=== PATIENT | male | born 1930 | race Caucasian/White ===

== ENCOUNTER 2019-03-19 13:09 | Emergency (ER) | payer MEDICARE ==
--- NOTE | 2019-03-19 14:13 | ED ---
Upper Extremity Pain - HPI Summary HPI Summary: 88-year-old male presents with swelling to the right ring finger for the past couple days. He denies any known injury. He states he has history of gout and that it feels similar. he noticed redness to the DIP. No fevers. has he has full range of motion finger. Has history of high blood pressure. No renal issues. He hasn't tried anything for symptoms. - History of Current Complaint Chief Complaint: UCUpperExtremity Stated Complaint: SWOLLEN FINGER Time Seen by Provider: 03/19/19 14:00 - Allergies/Home Medications Allergies/Adverse Reactions: Allergies Allergy/AdvReac Type Severity Reaction Status Date / Time No Known Allergies Allergy Verified 03/19/19 13:40 Home Medications: Home Medications Atenolol 25 mg PO BID 03/19/19 [History Confirmed 03/19/19] Atenolol TAB* [Tenormin TAB* 25 MG] 25 mg PO BID 03/19/19 [History Confirmed ] Levothyroxine TAB* [Synthroid TAB*] 150 mcg PO SEE INSTRUCTIONS 03/19/19 [ History Confirmed 03/19/19] Omeprazole 20 mg PO DAILY WITH MEAL 03/19/19 [History Confirmed 03/19/19] Potassium Chlor TAB* [Klor Con ER TAB*] 20 meq PO DAILY 03/19/19 [History Confirmed 03/19/19] levETIRAcetam [Levetiracetam] 500 mg PO DAILY WITH MEAL 03/19/19 [History Confirmed 03/19/19] niCARdipine CAP* [Cardene CAP*] 30 mg PO TID 03/19/19 [History Confirmed ] PMH/Surg Hx/FS Hx/Imm Hx Endocrine/Hematology History: Denies: Hx Anticoagulant Therapy Cardiovascular History: Reports: Hx Hypertension Infectious Disease History: No Infectious Disease History: Denies: Traveled Outside the [place] in Last 30 Days - Family History Known Family History: Positive: Non-Contributory - Social History Alcohol Use: Daily Substance Use Type: Reports: None Smoking Status (MU): Former Smoker Review of Systems Negative: Fever Negative: Chest Pain Negative: Shortness Of Breath Positive: Edema - right ring finger Positive: Rash All Other Systems Reviewed And Are Negative: Yes Physical Exam Triage Information Reviewed: Yes Vital Signs On Initial Exam: Initial Vitals Temp Pulse Resp BP Pulse Ox 98.8 F 53 16 173/99 98 03/19/19 13:37 03/19/19 13:37 03/19/19 13:37 03/19/19 13:37 03/19/19 13:37 Vital Signs Reviewed: Yes Appearance: Positive: Well-Appearing Skin: Positive: Warm, Dry, Other - mild redness to medial side of right ring finger, no flutance noted, nontender of tendon sheath and no erythema over tendon sheath Head/Face: Positive: Normal Head/Face Inspection Eyes: Positive: Normal, Conjunctiva Clear ENT: Positive: Pharynx normal Respiratory/Lung Sounds: Positive: Clear to Auscultation, Breath Sounds Present Cardiovascular: Positive: Normal, RRR Musculoskeletal: Positive: Strength/ROM Intact - right ring finger, Edema Right - ring finger, Other - capillary refill<2secs Neurological: Positive: Normal Psychiatric: Positive: Normal Diagnostics - Vital Signs Vital Signs Temp Pulse Resp BP Pulse Ox 03/19/19 13:37 98.8 F 53 16 173/99 98 - Laboratory Lab Statement: Any lab studies that have been ordered have been reviewed, and results considered in the medical decision making process. Course/Dx - Course Course Of Treatment: 88-year-old male presents with swelling to the right ring finger for the past couple days. He denies any known injury. He states he has history of gout and that it feels similar. he noticed redness to the DIP. No fevers. has he has full range of motion finger. Has history of high blood pressure. No renal issues. He hasn't tried anything for symptoms. on exam has mild erythema to DIP and distal pharynx f right ring finger. Full range of motion. mo Signs of flexor tenosynovitis. Looks like potential early paronychia but nothing can be drained at moment. We'll place on Keflex. We'll also give indomethacin in case is gout. Patient told to follow up primary about the swelling and about blood pressure as is elevated at this time. told if area of redness spreads and cannot move finger to return to the ER. Patient understands agrees with plan. - Diagnoses Differential Diagnosis/HQI/PQRI: Positive: Septic Arthritis, Other - paronychia , gout Provider Diagnoses: Swelling of finger, right Discharge - Sign-Out/Discharge Documenting (check all that apply): Patient Departure All imaging exams completed and their final reports reviewed: No Studies - Discharge Plan Condition: Good Disposition: HOME Prescriptions: Cephalexin CAP* [Keflex CAP*] 500 mg PO BID #20 cap Indomethacin CAP* [Indocin CAP*] 50 mg PO TID PRN #21 cap PRN Reason: Pain Referrals: No Primary Care Phys,NOPCP [Primary Care Provider] - Additional Instructions: take indomethacin three times a day Take keflex twice a day for 10 days warm soaks of the area Follow up with primary within 5 days Return to ED if develop any new or worsening symptoms - Billing Disposition and Condition Condition: GOOD Disposition: Home
== END 2019-03-19 14:25 | disposition home or self-care (01) ==
LOC: UCEAST 13:09
DX: M79.89 Other specified soft tissue disorders (principal); R21 Rash and other nonspecific skin eruption; I10 Essential (primary) hypertension; Z87.891 Personal history of nicotine dependence
CPT/HCPCS: 99212; G0463